=== PATIENT | female | born 1945 | race Asian ===

== ENCOUNTER 2023-01-25 12:16 | Emergency (ER) | payer MEDICARE ==
[~2023-01-25] VITALS: Ht 157.5 cm; Wt 71.4 kg
[2023-01-25 12:33] VITALS: TEMP 98.8
[2023-01-25] MEDS ORDERED: CYCLOBENZAPRINE HCL 10 MG TABLET PO ONE (12:45)
[2023-01-25] MEDS ORDERED: KETOROLAC TROMETHAMINE 30 MG/ML VIAL IVP ONE (12:45)
[2023-01-25] MEDS ORDERED: MORPHINE SULFATE 2 MG/ML SYRINGE IVP ONE ×2 (12:45→16:30)
[2023-01-25] MEDS ORDERED: ACETAMINOPHEN 500 MG TABLET PO ONE (16:30)
[2023-01-25] MEDS ORDERED: LIDOCAINE 5% TRANSDERMAL PATCH TD ONE (16:30)
[2023-01-25] MEDS ORDERED: IBUP-1492 PO (17:29)
[2023-01-25] MEDS ORDERED: CYCL-448 PO (17:29)
[2023-01-25] MEDS ORDERED: LIDO700A15 TP (17:29)
[2023-01-25 17:34] VITALS: BP 134/70; PULSE 74; RESP 18
== END 2023-01-25 18:10 | disposition home or self-care (01) ==
LOC: EMS 12:18
DX: S39.92XA Unspecified injury of lower back, initial encounter (principal); M19.90 Unspecified osteoarthritis, unspecified site; F32.A Depression, unspecified; E11.9 Type 2 diabetes mellitus without complications; E78.00 Pure hypercholesterolemia, unspecified; I10 Essential (primary) hypertension; Z96.642 Presence of left artificial hip joint; W19.XXXA Unspecified fall, initial encounter; Y93.89 Activity, other specified; Y92.89 Other specified places as the place of occurrence of the external cause; Y99.8 Other external cause status
CPT/HCPCS: 99284; 96374; 96375; 72100; 96376; J1885; J2270